=== PATIENT | male | born 1985 | race Caucasian/White ===

== ENCOUNTER 2020-07-10 11:16 | Emergency (ER) | payer BC, SELFPAY ==
[2020-07-10 11:34] VITALS: BP 140/81; PULSE 63; RESP 19; TEMP 36.6; O2SAT 100; BMI 24.9
--- NOTE | 2020-07-10 11:45 | HMH.EDUTC ---
[facility] [place] Disposition Clinical Impression: Encounter for laboratory testing for COVID-19 virus Disposition: Home, Self-Care Condition on Discharge: Good Instructions: Preventing the Spread of Coronavirus Discharge Instructions Additional Instructions: You was tested for today for COVID19 your test result should be back today you may call back to the [facility] later this evening to see if your test results are back and the result You was given a handout with instructions for Self Quarantine and Self isolation for while you wait on test results and what to do if they are positive Return if needed Straight to ER if any life threatening symptoms Follow up with Family Doctor if needed Referrals: Keanu Roman MD [Primary Care Provider] - As needed Forms: Work/School Release Time of Disposition: 11:50 Medical Decision Making - Dickson Inquiry Pt receiving controlled substance: No Dickson was queried for this patient: No Vital Signs: 07/10/20 11:34 Temperature 97.8 F Temperature Source Oral Pulse Rate [Right Brachial] 63 Respiratory Rate 19 Blood Pressure [Right Arm] 140/81 Blood Pressure Mean [Right Arm] 100 Blood Pressure Source [Right Arm] Automatic Cuff Blood Pressure Position [Right Arm] Sitting 02 Sat by Pulse Oximetry 100 Oxygen Delivery Method Room Air Orders (Tests/Meds): ORDERS Category Date Time Status Covid-19 Nasal PCR ([facility]) Routine Lab 07/10/20 11:21 Ordered [facility] [place] HPI - General Stated complaint: covid test Time Seen by Provider: 07/10/20 11:45 Mode of Arrival: Ambulatory Source of Information: Patient Limitations: No Limitations Description of Symptoms (Recalled from Triage Doc. by RN): PATIENT NEEDING COVID TEST. WAS EXPOSED TO COWORKER LAST WEEK WHO TESTED POSITIVE HEENT Symptoms (Recalled from RN notes): No Resp Symptoms (Recalled from RN notes): No Skin Symptoms (Recalled from RN notes): No MS Symptoms (Recalled from RN notes): No Functional Status (Recalled from RN notes): WNL - History of Present Illness Provider Complaint: Patient states that his employer sent him to get tested for COVID due to recently being exposed to another coworker that recently tested positive for COVID State that he isn't having any symptoms like cough, runny nose or fever but has been having some body aches but still wanted him to be tested due to close contact - Related Data Home Medications Medication Instructions Recorded Confirmed buprenorphine 8 mg-naloxone 2 mg 1.25 tab SUBLINGUAL DAILY #14 tab 02/17/19 07/10/20 sublingual tablet Allergies Allergy/AdvReac Type Severity Reaction Status Date / Time No Known Allergies Allergy Verified 01/09/20 11:19 - Worker's Comp Is this a Worker's Comp case?: No [facility] History - Hepatitis A Screen Drug use history?: No High risk sexual behaviors?: No History of sexually transmitted infection?: No Currently employed?: No Childcare worker?: No Do you have indoor plumbing?: Yes Do you have electricity?: Yes Attestation statement:: This patient has been screened for Hepatitis A risk factors. I have reviewed the patient's past medical history: Yes Other Surgeries: Yes: Appendectomy, Hernia Repair, Other Amputation: No Fractures: No Comment: Neck surgery - Social History Smoking Status: Never smoker Tobacco Type: smokeless tobacco # Packs/Day (cigarettes): 0 Alcohol Intake: never Substance Use Type: former substance user, heroin, opiates, methamphetamine Occupational Status: other Housing: house Household Members: family Family Hx:: No significant family history ROS Obtained: Yes All systems reviewed & no additional complaints, Yes Systems reviewed as appropriate & no additional complaints - Constitutional Constitutional: Reports system reviewed and no additional complaints, except as docu, Reports body ache, Denies chills, Denies fever(s), Denies headache(s) - ENT Ears, Nose, Mouth, and Throat: Denies otalgia, Denies sinus pain, Denie
[2020-07-10 11:55] VITALS: BP 140/81; PULSE 63; RESP 19; TEMP 36.6; O2SAT 100
[2020-07-11 13:28] LABS: Covid-19 Nasal PCR Sendout Lex NOT DETECTED
== END 2020-07-10 11:59 | disposition home or self-care (01) ==
PROVIDERS: Emergency Provider Nurse Practitioner; PCP Emergency Medicine
DX: Z20.828 Contact with and (suspected) exposure to other viral communicable diseases (principal)
CPT/HCPCS: 99201; U0004

== ENCOUNTER 2021-05-17 11:29 | Emergency (ER) | payer OTHER, SELFPAY ==
[2021-05-17 11:30] VITALS: BP 166/73; PULSE 51; RESP 20; TEMP 36.9; O2SAT 100; BMI 25.5
--- NOTE | 2021-05-17 12:22 | HMH.EDUTC ---
[facility] [place] [facility] [place] Clinical Impression: Left sided abdominal pain of unknown cause Disposition: Home, Self-Care Condition on Discharge: Good Instructions: DI for Abdominal Pain-Adult, DI for Acute Abdominal Pain Additional Instructions: Make sure if pain returns go straight to the Emergency Room for further treatment and evaluation Follow up with your Family Doctor if needed Return if needed Straight to ER if any life threatening symptoms Referrals: Keanu Roman MD [Primary Care Provider] - As needed Forms: Work/School Release Time of Disposition: 12:32 Medical Decision Making - Dickson Inquiry Pt receiving controlled substance: No Dickson was queried for this patient: No Vital Signs: 05/17/21 11:30 05/17/21 12:34 Temperature 98.4 F 98.4 F Temperature Source Oral Pulse Rate 51 L Pulse Rate [Right Brachial] 51 L Respiratory Rate 20 20 Blood Pressure 166/73 H Blood Pressure [Right Arm] 166/73 H Blood Pressure Mean [Right Arm] 104 Blood Pressure Source [Right Arm] Automatic Cuff Blood Pressure Position [Right Arm] Sitting 02 Sat by Pulse Oximetry 100 Oxygen Delivery Method Room Air - Lab Data Lab results reviewed: Yes: I reviewed the patient's lab results. Medical Decision Narrative: Discussed with patient and he states that he is not having any pain at this time and recommended transfer to the ED for further work up and evaluation Patient state that pain is better now and no longer having any pain Declined transfer State that he will go home and follow up with his PCP or return to the ER if pain returns States that he feels fine now but needs a note for work [facility] [place] HPI - General Stated complaint: left side stomach pain Time Seen by Provider: 05/17/21 12:22 Mode of Arrival: Ambulatory Source of Information: Patient Limitations: No Limitations Description of Symptoms (Recalled from Triage Doc. by RN): PATIENT C/O ABDOMINAL PAIN THAT STARTED THIS MORNING. STATES IT STARTS ON LEFT SIDE AND RADIATES TO FRONT, SHARP/BURNING PAIN. STATES HE HAS NAUSEA AND DIZZINESS WITH THE PAIN HEENT Symptoms (Recalled from RN notes): No Resp Symptoms (Recalled from RN notes): No Skin Symptoms (Recalled from RN notes): No MS Symptoms (Recalled from RN notes): No Functional Status (Recalled from RN notes): WNL - History of Present Illness Provider Complaint: Patient states that earlier this morning he was at work and drink a [employer] States that he had some sharp pain on the left side of his abdomen that radiated across his abdomen and when it happened it made him feel flush, have nausea and pain State that he had to leave work and when he got in his truck he belched and passed some gas and felt better States that now pain is gone and no longer feeling that way but had to leave work so he needed a note State that he also wanted to get his urine checked to see if he may have a UTI since his urine has been dark - Related Data Home Medications Medication Instructions Recorded Confirmed buprenorphine 8 mg-naloxone 2 mg 1.25 tab SUBLINGUAL DAILY #14 tab 02/17/19 01/31/21 sublingual tablet Allergies Allergy/AdvReac Type Severity Reaction Status Date / Time No Known Allergies Allergy Verified 01/31/21 11:51 - Worker's Comp Is this a Worker's Comp case?: No [facility] History - Hepatitis A Screen Drug use history?: No High risk sexual behaviors?: No History of sexually transmitted infection?: No Currently employed?: No Childcare worker?: No Do you have indoor plumbing?: Yes Do you have electricity?: Yes Attestation statement:: This patient has been screened for Hepatitis A risk factors. I have reviewed the patient's past medical history: Yes Other Surgeries: Yes: Appendectomy, Hernia Repair, Other Amputation: No Fractures: No Comment: Neck surgery - Social History Smoking Status: Never smoker Tobacco Type: smokeless tobacco # Packs/Day (cigarettes): 0 Alcohol Intake: never Substance Use Type
[2021-05-17 12:34] VITALS: BP 166/73; PULSE 51; RESP 20; TEMP 36.9; O2SAT 100
[2021-05-17 15:36] LABS: Apearance,Urine Clear (Clear); Bilirubin,Urine Negative (Negative); Blood, Urine Negative (Negative); Color,Urine Yellow (Yellow); Glucose,Urine (UA) Negative (Negative); Ketones,Urine Negative (Negative); Protein,Urine Negative (Negative); Specific Gravity, Urine 1.015 (1.005-1.030); UTC Leukocyte Esterase,Urine Negative (Negative); UTC Nitrate,Urine Negative (Negative); Urobilinogen,Urine 0.2 EU/dl (0.2)
== END 2021-05-17 12:41 | disposition home or self-care (01) ==
PROVIDERS: Emergency Provider Nurse Practitioner; PCP Emergency Medicine
DX: R10.12 Left upper quadrant pain (principal); R42 Dizziness and giddiness; F19.11 Other psychoactive substance abuse, in remission
CPT/HCPCS: 81003; 99202; G0463

== ENCOUNTER 2021-06-13 10:51 | Emergency (ER) | payer OTHER, SELFPAY ==
[2021-06-13 10:53] VITALS: BP 143/85; PULSE 85; RESP 20; TEMP 36.7; O2SAT 97; BMI 23.7
--- NOTE | 2021-06-13 11:06 | HMH.EDGENADL ---
ED Disposition Clinical Impression: Knee sprain Qualifiers: Encounter type: initial encounter Involved ligament of knee: unspecified ligament Laterality: left Qualified Code(s): S83.92XA - Sprain of unspecified site of left knee, initial encounter Disposition: Home, Self-Care Condition on Discharge: Good Additional Instructions: Knee immobilizer and crutches until follow-up by orthopedics. Call Dr. Weaver, orthopedics, today to make appointment for follow-up. Sitting job only until follow-up with orthopedics. Continue ibuprofen for pain and ice for swelling. Referrals: Keanu Roman MD [Primary Care Provider] - Best Weaver MD [Staff Physician] - Forms: Work/School Release - Critical Care Critical Care Time: No Attestation: On 06/13/21, the high probability of a clinically significant, sudden or life threatening deterioration of the following system(s) required my full and direct attention, intervention and personal management. The time I documented below is in addition to time spent performing reported procedures but includes the following listed in this critical care notation. Medical Decision Making - Dickson Inquiry Pt receiving controlled substance: No Vital Signs: 06/13/21 10:53 06/13/21 11:16 Temperature 98.1 F Temperature Source Oral Pulse Rate 71 Pulse Rate [Right] 85 Respiratory Rate 20 18 Blood Pressure 146/73 H Blood Pressure [Right Arm] 143/85 H Blood Pressure Mean 97 Blood Pressure Mean [Right Arm] 104 02 Sat by Pulse Oximetry 97 100 Oxygen Delivery Method Room Air Orders (Tests/Meds): ORDERS Category Date Time Status Knee XR left 3 views [XR knee LT 3V] Stat Exams 06/13/21 11:11 Taken - Radiology Data #1 Image(s): Knee Image Reviewed: Yes I reviewed the patient's radiology image Preliminary Findings: Normal/NAD General Adult HPI - General Stated complaint: fall 06/13 0830 lt knee pain Time Seen by Provider: 06/13/21 11:06 - History of Present Illness HPI narrative: States that he injured his left knee this morning at about 8:20 AM at work. States he accidentally stepped on a hose while standing on a downsloping floor. He slid down and in the process of falling hyperextended his left knee, felt a pop. He complains of pain deep down in the knee. Says he was unable to ambulate afterwards. Denies numbness or weakness. Denies other injuries. No prior knee problems. He used ice and took ibuprofen prior to arrival. Current pain is 3/10, initially was 5-6/10. - Related Data Home Medications Medication Instructions Recorded Confirmed buprenorphine 8 mg-naloxone 2 mg 1.25 tab SUBLINGUAL DAILY #14 tab 02/17/19 01/31/21 sublingual tablet Allergies Allergy/AdvReac Type Severity Reaction Status Date / Time No Known Allergies Allergy Verified 01/31/21 11:51 [facility] History - Hepatitis A Screen Attestation statement:: This patient has been screened for Hepatitis A risk factors. I have reviewed the patient's past medical history: Yes Other Surgeries: Yes: Appendectomy, Hernia Repair, Other Amputation: No Fractures: No Comment: Neck surgery - Social History Smoking Status: Never smoker Tobacco Type: smokeless tobacco # Packs/Day (cigarettes): 0 Alcohol Intake: never Substance Use Type: former substance user, heroin, opiates, methamphetamine Occupational Status: other Housing: house Household Members: family Family Hx:: No significant family history ROS Obtained: Yes Systems reviewed as appropriate & no additional complaints - Musculoskeletal Musculoskeletal: Reports as per HPI, Reports joint pain - Neurologic Neurologic: Denies numbness, Denies weakness Physical Exam - General General appearance: alert, in no apparent distress - Respiratory Respiratory exam: Absent: respiratory distress - Cardiovascular Cardiovascular exam: Present: regular rate - Expanded Lower Extremity Exam Left Knee exam
--- NOTE | 2021-06-13 11:11 | XR_ITS ---
PROCEDURE: XR KNEE LT 3V CLINICAL INDICATION: injury, hyperextension COMPARISON: No exams were available for comparison FINDINGS: No fracture or dislocation. Small bone island is present in the medial femoral condyle Minimal osteoarthritic change medial compartment. Suspect small suprapatellar effusion Other findings:None. IMPRESSION: No acute finding. Small suprapatellar effusion with minimal osteoarthritis Dictated by: Km Dunlap MD 06/13/2021 12:46 Km Dunlap MD in OV 06/13/2021 12:46
[2021-06-13 11:16] VITALS: BP 146/73; PULSE 71; RESP 18; O2SAT 100
[2021-06-13 11:50] VITALS: BP 132/71; PULSE 76; RESP 18; TEMP 36.7; O2SAT 98
--- NOTE | 2021-06-13 11:59 | PC.NURSE ---
Patient refused wheelchair assistance at discharge
--- NOTE | 2021-06-13 12:03 | PC.NURSE ---
patient provided copy of workmans comp form at discharge
== END 2021-06-13 11:59 | disposition home or self-care (01) ==
PROVIDERS: Emergency Provider Emergency Medicine; PCP Emergency Medicine
DX: S83.92XA Sprain of unspecified site of left knee, initial encounter (principal)
CPT/HCPCS: 73562; 99283

== ENCOUNTER → 2021-10-16 21:02 | Outpatient (CLI) | payer OTHER, SELFPAY | PROVIDERS: Visit Provider Nurse Practitioner Family | DX: Z20.822 Contact with and (suspected) exposure to COVID-19 (principal) | CPT/HCPCS: C9803; U0003; U0005 ==

== ENCOUNTER → 2021-11-04 12:10 | Outpatient (CLI) | payer OTHER, SELFPAY | PROVIDERS: Visit Provider Nurse Practitioner | DX: U07.1 COVID-19 (principal) | CPT/HCPCS: C9803; U0003; U0005 ==

== ENCOUNTER 2021-11-19 11:04 | Emergency (ER) | payer OTHER, SELFPAY ==
[2021-11-19 11:06] VITALS: BP 148/77; PULSE 80; RESP 16; TEMP 36.8; O2SAT 98; BMI 23.1
--- NOTE | 2021-11-19 11:25 | HMH.EDGENADL ---
ED Disposition Clinical Impression: Vertigo Disposition: Home, Self-Care Condition on Discharge: Fair Instructions: DI for Vertigo Additional Instructions: Antivert and Phenergan as prescribed. Follow-up with primary care provider this week. Return to the emergency department if worsening symptoms. Prescriptions: Promethazine HCl [Phenergan 25mg tab] 25 mg PO Q6HP PRN #10 tab PRN Reason: Nausea And Vomiting Transmission Status: Pending to [facility] Meclizine HCl [Antivert 25mg tablet] 25 mg PO TIDP PRN #15 tab PRN Reason: Vertigo Transmission Status: Pending to [facility] Referrals: Keanu Roman MD [Primary Care Provider] - - Critical Care Critical Care Time: No Attestation: On , the high probability of a clinically significant, sudden or life threatening deterioration of the following system(s) required my full and direct attention, intervention and personal management. The time I documented below is in addition to time spent performing reported procedures but includes the following listed in this critical care notation. Medical Decision Making - Dickson Inquiry Pt receiving controlled substance: No Vital Signs: 11/19/21 11:06 11/19/21 12:53 Temperature 98.2 F Temperature Source Oral Pulse Rate [Radial] 80 Respiratory Rate 16 Blood Pressure 128/77 Blood Pressure [Right Arm] 148/77 H Blood Pressure Mean [Right Arm] 100 Blood Pressure Position [Right Arm] Sitting 02 Sat by Pulse Oximetry 98 98 Oxygen Delivery Method Room Air - Lab Data Lab Results 11/19/21 11:28: POC Glucose 136 H 11/19/21 11:48: WBC 8.1, RBC 4.56 L, Hgb 13.2 L, Hct 41.1 L, MCV 90.0, MCH 28.9, MCHC 32.1, RDW 13.2, Plt Count 335, MPV 7.8, Neut % (Auto) 84.7 H, Lymph % (Auto) 10.9, [place] % (Auto) 3.5, Eos % (Auto) 0.4, Baso % (Auto) 0.5, Neut # (Auto) 6.9, Lymph # (Auto) 0.9, [place] # (Auto) 0.3, Eos # (Auto) 0.0, Baso # (Auto) 0.0 11/19/21 11:48: Sodium 141, Potassium 4.2, Chloride 102, Carbon Dioxide 31 H, Anion Gap 12.2, BUN 13, Creatinine 0.70, Estimated Creat Clear 178, Estimated GFR 128, Est GFR ( Amer) 154, Glucose 142 H, Calcium 9.9, Total Bilirubin 0.5, AST 36, ALT 27, Alkaline Phosphatase 97, Troponin I < 0.01, Total Protein 8.5 H, Albumin 4.8, Globulin 3.7 H, Albumin/Globulin Ratio 1.3 11/19/21 11:48: TSH 0.20 L, Free T4 Index 3.1 L, Thyroxine (T4) 10.7, T3 Uptake 29 Result diagrams: 11/19/21 11:48 11/19/21 11:48 Orders (Tests/Meds): ED MEDICATIONS Discontinued Medications Generic Name Dose Route Start Last Admin Trade Name Freq PRN Reason Stop Dose Admin Meclizine HCl 25 mg 11/19/21 11:38 11/19/21 11:43 Meclizine 25mg Tablet PO 11/19/21 11:39 25 mg ONCE ONE Administration Ondansetron HCl 4 mg 11/19/21 11:51 11/19/21 11:51 Ondansetron 4mg/2ml Vial IV 11/19/21 11:52 4 mg ONCE ONE Administration ORDERS Category Date Time Status Troponin I Q3H Lab 11/19/21 14:45 Ordered Troponin I Q3H Lab 11/19/21 17:45 Ordered - CT Data CT Scan: Head Time Received: 12:[address] Reviewed: Yes: I have viewed the radiologist's interpretation Findings Narrative: Procedure(s): CT head/brain wo con Accession Number(s): [id number] cc: Keanu Roman MD; Radhames Villeda MD; Florencio Osman MD~ FINAL REPORT CLINICAL HISTORY: dizziness, covid COMPARISON: May 18, 2016 FINDINGS: Axial images of the head were obtained without contrast. Coronal reformatted images were also obtained.This study was performed with techniques to keep radiation doses as low as reasonably achievable (ALARA). Individualized dose reduction techniques using automated exposure control or adjustment of mA and/or kV according to the patient's size were employed. There is no evidence of intracranial hemorrhage or mass. The ventricular size is within normal limits. There is no evidence of shift of the midline structures. No abnormal extra axia
[2021-11-19 11:35] LABS: POC Glucose,Bedside 136 (70-110)
--- NOTE | 2021-11-19 11:38 | CT_ITS ---
FINAL REPORT CLINICAL HISTORY: dizziness, covid COMPARISON: May 18, 2016 FINDINGS: Axial images of the head were obtained without contrast. Coronal reformatted images were also obtained.This study was performed with techniques to keep radiation doses as low as reasonably achievable (ALARA). Individualized dose reduction techniques using automated exposure control or adjustment of mA and/or kV according to the patient's size were employed. There is no evidence of intracranial hemorrhage or mass. The ventricular size is within normal limits. There is no evidence of shift of the midline structures. No abnormal extra axial fluid collection is identified. No skull abnormality is seen on the bone window images. IMPRESSION: No acute intracranial abnormality. Reviewed, Interpreted and Dictated by Radhames Villeda III, MD Transcribed by Talha Sandoval Authenticated by Radhames Villeda III, MD on 11/19/2021 12:34:42 PM [facility]
--- NOTE | 2021-11-19 11:39 | ECG_ITS ---
APPROVED REPORT Exam: Resting ECG HR:67 bpm ECG Measurements Heart Rate 67 AXES NV 188 P 71 QRSd 99 QRS 64 QT 375 T 40 QTc 391 Conclusion SINUS RHYTHM POSSIBLE LEFT ATRIAL ENLARGEMENT [-0.1mV P-WAVE IN V1/V2] POSSIBLE RIGHT VENTRICULAR CONDUCTION DELAY [RSR (QR) IN V1/V2] BORDERLINE ECG UNCONFIRMED REPORT Electronically signed by : Omari Islas MD 11/19/2021 17:44:44
[2021-11-19 12:08] LABS: Basophils % 0.5 % (0.1-2.0); Eosinophils % 0.4 % (0.1-12.0); Hematocrit 41.1 % (42.0-52.0); Hemoglobin 13.2 g/dL (14.1-18.0); Lymphocytes # 0.9 K/mm3 (0.7-4.5); Lymphocytes % 10.9 % (10-50); Mean Corpuscular HGB Conc 32.1 g/dL (31.8-35.4); Mean Corpuscular Hemoglobin 28.9 pg (27.0-31.2); Mean Platelet Volume 7.8 fl (7.4-10.4); Monocytes # 0.3 K/mm3 (0.1-1.0); Monocytes % 3.5 % (1.7-9.3); Neutrophils # 6.9 K/mm3 (1.8-7.8); Neutrophils % 84.7 % (37.0-80.0); Platelet Count 335 K/mm3 (142-424); Red Blood Count 4.56 M/mm3 (4.60-6.20); Red Cell Distribution Width 13.2 % (11.5-17.5); White Blood Count 8.1 K/mm3 (4.8-10.8)
[2021-11-19 12:14] LABS: Alanine Aminotransferase 27 U/L (12-78); Albumin Level 4.8 g/dl (3.5-5.0); Albumin/Globulin Ratio 1.3 (1.1-1.8); Alkaline Phosphatase 97 U/L (38-126); Anion Gap 12.2 mEq/L (5-15); Aspartate Amino Transferase 36 U/L (17-59); Bilirubin,Total 0.5 mg/dl (0.2-1.3); Blood Urea Nitrogen 13 mg/dl (9-20); Calcium 9.9 mg/dl (8.4-10.2); Carbon Dioxide 31 mmol/L (22.0-30.0); Chloride 102 mmol/L (98-107); Creatinine Clearance Estimated 178 mL/min (50-200); Estimated Glomerular Filt Rate 128 ml/min (>60); GFR (African American) 154 ML/MIN (>60); Globulin 3.7 g/dL (1.3-3.2); Glucose 142 mg/dl (74-100); Potassium 4.2 mmoL/L (3.5-5.1); Sodium 141 mmol/L (136-145); Total Protein,Serum 8.5 g/dl (6.3-8.2)
[2021-11-19 12:31] LABS: Troponin I < 0.01 ng/ml (0.00-0.034)
[2021-11-19 12:50] LABS: Triiodothryronine (T3) Uptake 29 % (23.5-40.5)
[2021-11-19 12:51] LABS: Free Thyroxine Index 3.1 ug/dL (5.93-13.13); T4 (Thyroxine) 10.7 ug/dl (5.53-11.0)
[2021-11-19 12:53] VITALS: BP 128/77; O2SAT 98
[2021-11-19 15:12] VITALS: BP 135/75; PULSE 78; RESP 16; TEMP 36.9; O2SAT 98
== END 2021-11-19 15:14 | disposition home or self-care (01) ==
PROVIDERS: Emergency Provider Emergency Medicine; PCP Emergency Medicine
DX: R42 Dizziness and giddiness (principal); Z86.16 Personal history of COVID-19
CPT/HCPCS: 70450; 80053; 82962; 84436; 84443; 84479; 84484; 85025; 93005; 99282; J2405

== ENCOUNTER 2025-01-20 16:24 | Observation (INO) | payer OTHER, SELFPAY ==
[2025-01-20] VITALS (12 sets, daily range): BP systolic 104–141; BP diastolic 50–79; PULSE 45–82; RESP 17; TEMP 36.7–37.1; O2SAT 97–100; BMI 26.2
--- NOTE | 2025-01-20 16:39 | CT_ITS ---
PROCEDURE INFORMATION: Exam: CT Abdomen And Pelvis With Contrast Exam date and time: 01/20/2025 4:57 PM Age: 39 years old Clinical indication: Other: Umbilical abscess, assess depth and extent TECHNIQUE: Imaging protocol: Computed tomography of the abdomen and pelvis with contrast. Radiation optimization: All CT scans at this facility use at least one of these dose optimization techniques: automated exposure control; mA and/or kV adjustment per patient size (includes targeted exams where dose is matched to clinical indication); or iterative reconstruction. Contrast material: ISOVUE; Contrast volume: 75 ml; Contrast route: IV; COMPARISON: No relevant prior studies available. FINDINGS: Liver: Unremarkable. Gallbladder and biliary ducts: Unremarkable. Pancreas: Unremarkable. Spleen: Unremarkable. Adrenal glands: Unremarkable. Kidneys and ureters: Unremarkable. Stomach and bowel: Unremarkable. Appendix: No evidence of appendicitis. Intraperitoneal space: No free fluid. No pneumoperitoneum. Vasculature: Unremarkable. Lymph nodes: Unremarkable. Urinary bladder: Urinary bladder is unremarkable. No evidence of cyst or inflammatory changes in the urachal ligament. Reproductive: Unremarkable. Bones/joints: Grade 1 retrolisthesis at L5-S1. No evidence of acute osseous abnormality. Soft tissues: Soft tissue thickening in the umbilicus compatible with the reported history of umbilical soft tissue infection. No focal fluid collection or subcutaneous emphysema. IMPRESSION: 1. Soft tissue thickening in the umbilicus compatible with the reported history of umbilical soft tissue infection. No evidence of drainable fluid collection or intra-abdominal extension. 2. Grade 1 retrolisthesis at L5-S1.
--- NOTE | 2025-01-20 16:52 | HMH.EDGENADL ---
Discharge Plan Disposition Patient Disposition: Admitted Prescriptions Prescriptions: No Action buprenorphine-naloxone 8-2 mg tablet, sublingual 1.25 tab SUBLINGUAL DAILY Qty: 14 Referrals Follow up/Referrals: Provider,Referral, MD [Primary Care Provider] - See instructions Clinical Impressions Clinical Impression: Abscess of umbilicus Instructions Patient Instructions: DI for Laceration Repair Print Language Print Language: [place] Discharge ED Provider: Ralph Richardson General Adult HPI General Chief complaint: Wound/Laceration Stated complaint: ? infected naval,has bloody drainage Time Seen by Provider: 01/20/25 16:28 History of Present Illness HPI narrative: Please note that above description of symptoms, in this electronic medical record under categorization of recalled from ER triage doctor by RN are reflective of an initial nursing assessment, however, is not reflective of my full history and physical exam that was personally taken and clarified. Consequentially, this preceding description of symptoms, which may include the patient's categorized chief complaint in the EMR, do not reflect my personal clinical impression, and the ultimate description of history of present illness and patient stated complaints should be deferred to this section of the note. Unless stated otherwise or congruent with this section of the note, additional signs, symptoms, or incongruence should be interpreted as inaccurate with my clinical impression. Related Data Home Medications ?Medication ?Instructions ?Recorded ?Confirmed buprenorphine 8 mg-naloxone 2 mg 1.25 tab sublingual DAILY 02/17/19 01/20/25 sublingual tablet ADDICTION #14 tabs Allergies Allergy/AdvReac Type Severity Reaction Status Date / Time No Known Allergies Allergy Verified 01/20/25 15:54 [facility] Disclaimer: The information contained in this section may have been updated after the patient was seen, as this information can be updated by other users. Social History Smoking Status: Never smoker alcohol intake: never substance use type: former substance user, heroin, opiates and methamphetamine current occupational status: other Travel in the last 8 weeks: None household members: family housing: house Have you lived/traveled outside US in past 30 days?: No Contact w/someone who lives/traveled outside US past 30 days?: No Exposure to someone with infectious disease in past 14 days?: No Do you have a fever (greater than 100.4 F or 38 C)?: No Have you tested positive for COVID-19: No Exposed to someone with COVID-19 in past 14 days?: No Do you have a sore throat?: No Do you have a cough?: No Do you have any weakness?: No Do you have any diarrhea?: No Are you experiencing any unusual bleeding?: No Do you have any muscle aches/pain?: No Do you have any abdominal pain?: No Are you experiencing loss of taste or smell?: No Other Medical History Have you received the Flu Vaccine for this season: No Have you received the Pneumonia Vaccine: No ROS Obtained: Yes All systems reviewed & no additional complaints except as documented Physical Exam General General appearance: alert Head Head exam: atraumatic and normocephalic Eye Eye exam: Present normal appearance, PERRL and EOMI Neck Neck exam: Present normal inspection, full ROM and trachea midline Respiratory Respiratory exam: Absent respiratory distress, wheezes, stridor, accessory muscle use or prolonged expiratory phase Cardiovascular Cardiovascular exam: Present other (Pulses equal symmetric in upper and lower extremities) Abdominal Exam Abdominal exam: Present soft and other (Patient has purulence coming from umbilicus that is foul-smelling, yellow to green. Red streaking inferior to the umbilicus consistent with cellulitis); Absent distention, tenderness, guarding, rebound or pulsatile mass Extremities Exam Extremities exam: Absent edema Neurological Exam Neurological exam: Present alert, oriented X3 and CN II-XII intact; Absent motor sensory deficit Skin Skin exam: Present warm and dry; Absent diaphoresis or erythema Medical Decision Making Medical Records Medical records reviewed: Yes I reviewed the patient's medical records. Screening: Per USPSTF and CDC recommendations, given the prevalence of disease in our region, it is our hospital?s policy to screen for HIV and viral Hepatitis for all patients aged 18 and over and those with ongoing risk factors. Dicks[place] Inquiry Pt receiving controlled substance: No Dickson was queried for this patient: No Vital Signs: 01/20/25 16:47 01/20/25 17:15 01/20/25 17:30 Temperature 98.2 F Temperature Source Oral Pulse Rate 50 L 48 L Pulse Rate [Left Radial] 58 L Respiratory Rate 17 Blood Pressure 115/75 116/68 Blood Pressure [Right Arm] 141/79 H Blood Pressure Mean Blood Pressure Mean [Right Arm] 99 Blood Pressure Source [Right Arm] Automatic Cuff Blood Pressure Position [Right Arm] Sitting 02 Sat by Pulse Oximetry 100 100 98 Oxygen Delivery Method Room Air Room Air Room Air 01/20/25 17:45 01/20/25 18:00 01/20/25 18:15 Temperature Temperature Source Pulse Rate 51 L 54 L 50 L Pulse Rate [Left Radial] Respiratory Rate Blood Pressure 127/69 107/72 L 125/76 Blood Pressure [Right Arm] Blood Pressure Mean 78 78 89 Blood Pressure Mean [Right Arm] Blood Pressure Source [Right Arm] Blood Pressure Position [Right Arm] 02 Sat by Pulse Oximetry 97 98 99 Oxygen Delivery Method 01/20/25 18:31 01/20/25 18:45 Temperature Temperature Source Pulse Rate 49 L 47 L Pulse Rate [Left Radial] Respiratory Rate Blood Pressure 113/59 L 110/60 Blood Pressure [Right Arm] Blood Pressure Mean 77 Blood Pressure Mean [Right Arm] Blood Pressure Source [Right Arm] Blood Pressure Position [Right Arm] 02 Sat by Pulse Oximetry 99 98 Oxygen Delivery Method Room Air Lab Data Lab Results 01/20/25 16:47: WBC 4.9, RBC 4.63, Hgb 13.7 L, Hct 40.4 L, MCV 87.3, MCH 29.6, MCHC 33.9, RDW 12.6, Plt Count 279, MPV 9.2, Neut % (Auto) 57.8, Lymph % (Auto) 27.2, [place] % (Auto) 8.3, Eos % (Auto) 5.7, Baso % (Auto) 0.8, Neut # (Auto) 2.8, Lymph # (Auto) 1.3, [place] # (Auto) 0.4, Eos # (Auto) 0.3, Baso # (Auto) 0.0, Sodium 140, Potassium 4.1, Chloride 102, Carbon Dioxide 30, Anion Gap 12.1, BUN 11, Creatinine 0.70, Estimated Creat Clear 195, Estimated GFR 126, Est GFR ( Amer) 152, Glucose 96, Calcium 8.9, Total Bilirubin 0.4, AST 41, ALT 24, Alkaline Phosphatase 84, Total Protein 8.2, Albumin 4.8, Globulin 3.4 H, Albumin/Globulin Ratio 1.4, HCV Ab RIZWANA w/Rflx PCR Qn Negative, HIV Ag/Ab Combo Qual Negative 01/20/25 16:47 01/20/25 16:47 Orders (Tests/Meds): ED MEDICATIONS Generic Name Dose Route Start Last Admin Trade Name Freq PRN Reason Stop Dose Admin Vancomycin/PEG/NADA/Lysine/Water 1.5 gm in 300 mls @ 150 mls/hr 01/20/25 19:15 01/20/25 19:19 Vancomycin 1.5gm/300ml (Peg) Premix IV 01/20/25 21:14 150 mls/hr ONCE ONE Administration Miscellaneous 1 each 01/20/25 19:00 01/20/25 19:06 Vancomycin Consult Request NOTAPPLIC 02/19/25 18:59 Not Given CONSULT [facility] Discontinued Medications Generic Name Dose Route Start Last Admin Trade Name Freq PRN Reason Stop Dose Admin Doxycycline Hyclate 100 mg 01/20/25 17:53 01/20/25 18:45 Doxycycline Hycl 100 Mg Tablet PO 01/20/25 17:54 100 mg ONCE ONE Administration Piperacillin Sod/Tazobactam 100 mls @ 200 mls/hr 01/20/25 18:49 01/20/25 19:19 Sod 4.5 gm/ Sodium Chloride IV 01/20/25 19:18 200 mls/hr ONCE ONE Administration Iopamidol 75 ml 01/20/25 17:01 01/20/25 17:02 Iopamidol-370 (76%);100ml Bottle IV 01/20/25 17:02 75 ml ONCE ONE Administration Sodium Chloride 10 ml 01/20/25 17:01 01/20/25 17:02 Sodium Chloride 0.9% 10ml Syr (Rad Only) IV 01/20/25 17:02 10 ml ONCE ONE Administration ORDERS Category Date Time Status CT abdomen pelvis w con Stat Cat Scan 01/20/25 16:39 Completed POCUS Point of Care (ER Only) Stat Exams 01/20/25 17:53 Completed CBC w/Auto Diff [Complete Blood Count Auto Diff] Stat Lab 01/20/25 16:47 Completed CMP [Comprehensive Metabolic Panel] Stat Lab 01/20/25 16:47 Completed HIV Combo Stat Lab 01/20/25 16:47 Completed Hepatitis C Ab Qual. W/ RFX Stat Lab 01/20/25 16:47 Completed Medical Decision Narrative: 39-year-old male history of remote IV drug abuse currently on Suboxone maintenance therapy presenting with umbilicus drainage. He states that this has been going on for about 2 months. Went to the urgent care 2 months prior to this, was told that he had a fungal infection in his navel and was given a fungal cream. Has been putting it on his navel since that time, states it has not been helping and over the past couple weeks it has been draining thick, malodorous drainage. Started yesterday or the day before, patient started noticing redness streaking from the umbilicus down toward his belt line. Went to the urgent care just prior to this, but before being evaluated, came to the emergency department. No fevers or chills, nausea or vomiting, and no significant pain. States that he does have some mild pain when he applies direct pressure to the superior aspect of the umbilicus, but otherwise does not really bother him other than the drainage. History was obtained via conversation with patient. On arrival, patient hemodynamically stable, alert, oriented x4, appropriate, GCS 15, moving all extremities spontaneously, pupils equal and reactive to light. Full physical exam performed and significant for Patient has purulence coming from umbilicus that is foul-smelling, yellow to green. Red streaking inferior to the umbilicus consistent with cellulitis. No tenderness on my exam. Hemodynamically stable, afebrile and normotensive. Nontachycardic. Differential includes cellulitis, abscess, deep space infection, among others. Patient placed on continuous cardiac monitoring and continuous pulse ox with initial blood pressure 141/79, heart rate 58, saturation 99% on room air. Patient was given doxycycline p.o. for symptomatic management and correction of underlying abnormalities. Workup independently interpreted and significant for nonactionable hematologic labs. On independent interpretation of imaging, patient has umbilical abscess that appears to be nearly communicating with the peritoneum. Peritoneal defect immediately under. See radiology read for full review of final results. Bedside [id number] ultrasound was performed. There is a large abscess extending from umbilicus down to peritoneal wall. General surgery was contacted and case was discussed, mention that he would like to admit the patient for operative evaluation and examination. Hospital medicine was contacted and interactive discussion was had, to be admitted. Surgery requested vancomycin and Zosyn, this was ordered. Lorry Weigher disclaimer Much of this encounter note is an electronic hot walker spoken language to printed text. Electronic hot walker of the spoken language may permit errors. Although I have reviewed the note, some errors may still exist. Procedures Limited Ultrasound Indication:: Limited soft tissue ultrasound Indication: Periumbilical swelling, redness, drainage Identified structures: Location: Abdominal wall tissues Findings: Cellulitis and abscess Impression: Cellulitis and abscess umbilical wall just deep to the umbilicus Images were saved to permanent archive The study was technically adequate Soft Tissue CPT Codes: CPT Neck: 73793-71 CPT Upper extremity: 62156-04 CPT Axilla: 12837-28 CPT Chest wall: 43613-90 CPT Breast: 42251-12-HW/LT (complete), 23499-79-LN/LT (limited), CPT Upper Back: 09647-82 CPT Lower Back: 76109-01 CPT Abdominal Wall: 73967-16 CPT Pelvic Wall: 60249-66 CPT Lower Extremity: 21588-33 CPT Other Soft Tissue: 46161-75 This study was performed by me, and I personally interpreted all images/videos. Based on my clinical judgement, these images were adequate and did not necessitate further imaging. Critical Care Critical Care Time Critical Care Time: No
[2025-01-20 16:57] LABS: Basophils % 0.8 % (0.1-2.0); Eosinophils # 0.3 K/mm3 (0.0-0.4); Eosinophils % 5.7 % (0.1-12.0); Hematocrit 40.4 % (42.0-52.0); Hemoglobin 13.7 g/dL (14.1-18.0); Lymphocytes # 1.3 K/mm3 (0.7-4.5); Lymphocytes % 27.2 % (10-50); Mean Corpuscular HGB Conc 33.9 g/dL (31.8-35.4); Mean Corpuscular Hemoglobin 29.6 pg (27.0-31.2); Mean Corpuscular Volume 87.3 fl (80-94); Mean Platelet Volume 9.2 fl (7.4-10.4); Monocytes # 0.4 K/mm3 (0.1-1.0); Monocytes % 8.3 % (1.7-9.3); Neutrophils # 2.8 K/mm3 (1.8-7.8); Neutrophils % 57.8 % (37.0-80.0); Nucleated Red Blood Cells # 0 10^3/uL; Nucleated Red Blood Cells % 0 %; Platelet Count 279 K/mm3 (142-424); Red Blood Count 4.63 M/mm3 (4.60-6.20); Red Cell Distribution Width 12.6 % (11.5-17.5); Red Cell Distribution Width-SD 40.1 fL; White Blood Count 4.9 K/mm3 (4.8-10.8)
[2025-01-20] MEDS: IOPAMIDOL-370 (76%);100ML BOTTLE 75 ML IV (17:02)
[2025-01-20] MEDS: SODIUM CHLORIDE 0.9% 10ML SYR (RAD ONLY) 10 ML IV (17:02)
[2025-01-20 17:07] LABS: Albumin Level 4.8 g/dl (3.5-5.0); Chloride 102 mmol/L (98-107); Sodium 140 mmol/L (136-145)
[2025-01-20 17:08] LABS: Potassium 4.1 mmoL/L (3.5-5.1)
[2025-01-20 17:10] LABS: Alanine Aminotransferase 24 U/L (12-78); Albumin/Globulin Ratio 1.4 (1.1-1.8); Anion Gap 12.1 mEq/L (5-15); Aspartate Amino Transferase 41 U/L (17-59); Blood Urea Nitrogen 11 mg/dl (9-20); Carbon Dioxide 30 mmol/L (22.0-30.0); Creatinine Clearance Estimated 195 mL/min (50-200); Estimated Glomerular Filt Rate 126 ml/min (>60); GFR (African American) 152 ML/MIN (>60); Globulin 3.4 g/dL (1.3-3.2); Total Protein,Serum 8.2 g/dl (6.3-8.2)
[2025-01-20 17:11] LABS: Alkaline Phosphatase 84 U/L (38-126); Bilirubin,Total 0.4 mg/dl (0.2-1.3); Calcium 8.9 mg/dl (8.4-10.2); Glucose 96 mg/dl (74-100)
[2025-01-20 18:39] LABS: HIV Combo NEGATIVE (Negative)
[2025-01-20] MEDS: DOXYCYCLINE HYCL 100 MG TABLET PO (18:45)
[2025-01-20 18:46] LABS: Hepatitis C Ab Qual. W/ RFX NEGATIVE (Negative)
[2025-01-20] MEDS: VANCOMYCIN/WATER FOR INJ (PEG) 1.5 GM/300 ML PIGGYBACK IV (19:19)
[2025-01-20] MEDS: PIPERACILLIN/TAZO 4.5 GM in 0.9 % SODIUM CHLORIDE 100 ML IV (19:19)
--- NOTE | 2025-01-20 19:56 | P.HP_ITS ---
<Statement entered by Shemar Garcia MD - 01/21/25 14:07> I personally examined the patient and agree with the plan of care as outlined by the [facility] SPECIALIST. History of Present Illness *Admission Date: 01/20/25 *Reason for visit:: Periumbilical abscess *History of present illness: A 39-year-old male with a history of remote IV drug abuse, currently on Suboxone maintenance therapy for 8 years, presents with a chief complaint of umbilical drainage for approximately 2 months. The patient reports that the issue began about 2 months ago when he sought care at an urgent care facility. He was diagnosed with a presumed fungal infection of the navel and prescribed an antif ungal cream, which he has been applying consistently since that time. He states the cream has not improved his symptoms, and over the past couple of weeks, the drainage has worsened, becoming thick, yellow-green, and malodorous. Starting 1?2 days prior to presentation, he noticed redness streaking from the umbilicus downward toward his belt line. This prompted a second visit to urgent care earlier today, but he left before evaluation and presented to the emergency department. The patient denies fevers, chills, nausea, vomiting, or significant pain. He reports mild discomfort only when applying direct pressure to the superior aspect of the umbilicus, with no other associated symptoms. He denies trauma to the area or recent surgeries. The history was obtained directly from the patient, who is deemed reliable. On examination, the patient is hemodynamically stable, alert, oriented x4, with a [place] Coma Scale of 15. Vital signs include blood pressure 141/79 mmHg, heart rate 58 bpm, oxygen saturation 99% on room air, and he is afebrile. Physical exam reveals purulent, foul-smelling, yellow-green drainage from the umbilicus with red streaking inferiorly toward the belt line. No tenderness is elicited on exam, though the patient reports mild tenderness with self-palpation superiorly. The remainder of the exam is unremarkable. Laboratory results are notable for a white blood cell count of 4.9 (within normal limits), hemoglobin of 13.7 g/dL (mildly low), and hematocrit of 40.4% (mildly low). Comprehensive metabolic panel is unremarkable, with creatinine of 0.70 mg/dL and estimated GFR of 126 mL/min/1.73m?. Liver function tests show a slightly elevated AST of 41 U/L, with normal ALT, bilirubin, and alkaline phosphatase. Hepatitis C antibody and HIV antigen/antibody tests are negative. Bedside [id number] ultrasound reveals a large umbilical abscess extending toward the peritoneal wall, nearly communicating with the peritoneum, with a peritoneal defect noted. Imaging, independently interpreted, confirms an umbilical abscess with concern for peritoneal involvement, pending final radiology read. Treatments implemented prior to admission include antifungal cream applied to the umbilicus for 2 months, as prescribed by urgent care, with no improvement noted. In the emergency department, the patient has received oral doxycycline, and intravenous vancomycin and Zosyn have been ordered and initiated for broad- spectrum antibiotic coverage by surgery with consultation in the a[facility] Disclaimer: The information contained in this section may have been updated after the patient was seen, as this information can be updated by other users. Surgical History H/O hernia repair Hx of appendectomy Social History Smoking Status: Never smoker alcohol intake: never substance use type: former substance user, heroin, opiates and methamphetamine current occupational status: employed Travel in the last 8 weeks: None household members: family housing: house Have you lived/traveled outside US in past 30 days?: No Contact w/someone who lives/traveled outside US past 30 days?: No Exposure to someone with infectious disease in past 14 days?: No Do you have a fever (greater than 100.4 F or 38 C)?: No Have you tested positive for COVID-19: No Exposed to someone with COVID-19 in past 14 days?: No Do you have a sore throat?: No Do you have a cough?: No Do you have any weakness?: No Are you experiencing any nausea/vomitting?: No Do you have any diarrhea?: No Are you experiencing any unusual bleeding?: No Do you have any muscle aches/pain?: No Do you have any abdominal pain?: No Are you experiencing loss of taste or smell?: No Other Medical History Have you received the Flu Vaccine for this season: No Have you received the Pneumonia Vaccine: No Review of Systems Review of Systems Review of systems (narrative): 13 point review of system negative except as listed in HPI Meds Home Medications and Allergies Home Medications ?Medication ?Instructions ?Recorded ?Confirmed ?Type buprenorphine 8 mg-naloxone 2 mg 1.5 tab sublingual DAILY ADDICTION 02/17/19 01/20/25 History sublingual tablet #14 tabs New Prescriptions to Start Prescriptions: Allergies Allergy/AdvReac Type Severity Reaction Status Date / Time No Known Allergies Allergy Verified 01/20/25 15:54 Exam Data for Last 24 hours Vital signs and Labs for Last 24 Hours: Temp Pulse Resp BP Pulse Ox O2 Del Method 98.2 F 47 L 17 110/60 98 Room Air 01/20/25 16:47 01/20/25 18:45 01/20/25 16:47 01/20/25 18:45 01/20/25 18:45 01/20/25 18:45 Laboratory Results - last 24 hr 01/20/25 16:47: WBC 4.9, RBC 4.63, Hgb 13.7 L, Hct 40.4 L, MCV 87.3, MCH 29.6, MCHC 33.9, RDW 12.6, Plt Count 279, MPV 9.2, Neut % (Auto) 57.8, Lymph % (Auto) 27.2, [place] % (Auto) 8.3, Eos % (Auto) 5.7, Baso % (Auto) 0.8, Neut # (Auto) 2.8, Lymph # (Auto) 1.3, [place] # (Auto) 0.4, Eos # (Auto) 0.3, Baso # (Auto) 0.0, Sodium 140, Potassium 4.1, Chloride 102, Carbon Dioxide 30, Anion Gap 12.1, BUN 11, Creatinine 0.70, Estimated Creat Clear 195, Estimated GFR 126, Est GFR ( Amer) 152, Glucose 96, Calcium 8.9, Total Bilirubin 0.4, AST 41, ALT 24, Alkaline Phosphatase 84, Total Protein 8.2, Albumin 4.8, Globulin 3.4 H, Albumin/Globulin Ratio 1.4, HCV Ab RIZWANA w/Rflx PCR Qn Negative, HIV Ag/Ab Combo Qual Negative I & O for Last 24 hours: Intake & Output 01/17/25 01/18/25 01/19/25 01/20/25 23:59 23:59 23:59 23:59 Weight 97.522 kg Constitutional Constitutional: no acute distress *Routine HEENT Exam Head: Present normocephalic Eye: Present EOMI and PERRL ENT: Present mucous membranes moist *Routine Neck Exam Neck: Present supple; Absent lymphadenopathy *Routine Respiratory Exam Respiratory: Present CTA bilaterally *Routine Cardiovascular Exam Cardiovascular: Present RRR *Routine Abdominal Exam Abdominal: Present soft, normoactive bowel sounds, tenderness and wound Comments: Purulent drainage periumbilical region *Routine Rectal Exam Rectal:: deferred *Routine Genitalia Exam Genitalia:: deferred *Routine Extremities Exam Extremities: Absent cyanosis, clubbing or edema *Routine Skin Exam Skin: Present warm; Absent rash *Routine Neurological Exam Neurological: Present alert and oriented X3 Assessment and Plan *Assessment and plan (1) Abscess of umbilicus: Status: Acute Category: Medical Code(s): L02.216 - Cutaneous abscess of umbilicus Plan Umbilical Abscess with Near-Peritoneal Communication: A large umbilical abscess identified on ultrasound and imaging, extending toward the peritoneal wall with a peritoneal defect, presenting with purulent, malodorous drainage for 2 months. * Continue intravenous vancomycin and piperacillin-tazobactam (Zosyn) for broad-spectrum coverage of polymicrobial infection, including methicillin- resistant Staphylococcus aureus and anaerobes. * Admit for general surgery evaluation and likely operative incision and drainage or debridement, per surgical consultation. N.p.o. after midnight * Obtain wound culture during surgical intervention to guide antibiotic t herapy. * Await final radiology read to confirm extent of peritoneal involvement. * Monitor for decreased drainage and repeat imaging only if recommended by surgery. Cellulitis (Inferior to Umbilicus): Erythema and streaking extending from the umbilicus toward the belt line, consistent with cellulitis, noted for 1?2 days. * Continue vancomycin and piperacillin-tazobactam (Zosyn), providing coverage for cellulitis. * Assess erythema and streaking every 8?12 hours * Elevate abdomen when feasible to minimize swelling. Mild Anemia (Hemoglobin 13.7 g/dL, Hematocrit 40.4%): Mildly low hemoglobin and hematocrit, likely chronic, without acute symptoms or bleeding. * Observe without acute intervention, given mild severity. * Repeat complete blood count in 24 Mildly Elevated AST (41 U/L): Isolated mild elevation of aspartate aminotransferase, with normal alanine aminotransferase, bilirubin, and alkaline phosphatase, possibly related to Suboxone or subclinical liver irritation. * Monitor liver function tests during admission to ensure no progression with antibiotic therapy. * Avoid hepatotoxic medications and confirm stable Suboxone dosing. * Repeat liver function tests in 48 hours if clinically indicated. Opioid Use Disorder on Suboxone Maintenance Therapy: Stable on Suboxone for 8 years, with no signs of relapse or withdrawal on presentation. * Continue Suboxone at current dose to prevent withdrawal, coordinating with hospital pharmacy for administration. * Monitor for withdrawal symptoms during admission. * Schedule outpatient follow-up with addiction medicine or primary care for ongoing Suboxone management. Disposition: * Admit to hospital medicine service for coordination with general surgery. * Maintain continuous cardiac monitoring and pulse oximetry due to risk of deeper infection.
--- NOTE | 2025-01-20 20:00 | PC.NURSE ---
REPORT CALLED TO JP HERRON
--- NOTE | 2025-01-20 20:16 | PC.NURSE ---
Patient arrived to floor via wheelchair from ED at 20:10.
[2025-01-20] MEDS: LACTATED RINGERS 1000ML 1,000 ML 50 ML IV (21:10)
[2025-01-21] VITALS (12 sets, daily range): BP systolic 113–150; BP diastolic 64–99; PULSE 51–94; RESP 16–18; TEMP 36.3–36.6; O2SAT 96–100; BMI 26.6
[2025-01-21 06:29] LABS: Chloride 106 mmol/L (98-107); Potassium 4.3 mmoL/L (3.5-5.1); Sodium 138 mmol/L (136-145)
[2025-01-21 06:32] LABS: Anion Gap 8.3 mEq/L (5-15); Blood Urea Nitrogen 10 mg/dl (9-20); Carbon Dioxide 28 mmol/L (22.0-30.0); Creatinine Clearance Estimated 232 mL/min (50-200); Estimated Glomerular Filt Rate 150 ml/min (>60); GFR (African American) 181 ML/MIN (>60); Phosphorous 3.2 mg/dl (2.5-4.5)
[2025-01-21 06:33] LABS: Calcium 8.6 mg/dl (8.4-10.2); Glucose 92 mg/dl (74-100)
[2025-01-21 07:03] LABS: Basophils % 0.8 % (0.1-2.0); Eosinophils # 0.3 K/mm3 (0.0-0.4); Eosinophils % 6.4 % (0.1-12.0); Hemoglobin 12.6 g/dL (14.1-18.0); Lymphocytes # 1.7 K/mm3 (0.7-4.5); Lymphocytes % 31.9 % (10-50); Mean Corpuscular HGB Conc 33.2 g/dL (31.8-35.4); Mean Corpuscular Hemoglobin 29.2 pg (27.0-31.2); Mean Corpuscular Volume 88.2 fl (80-94); Mean Platelet Volume 9.4 fl (7.4-10.4); Monocytes # 0.4 K/mm3 (0.1-1.0); Monocytes % 8.1 % (1.7-9.3); Neutrophils # 2.7 K/mm3 (1.8-7.8); Neutrophils % 52.6 % (37.0-80.0); Nucleated Red Blood Cells # 0 10^3/uL; Nucleated Red Blood Cells % 0 %; Platelet Count 252 K/mm3 (142-424); Red Blood Count 4.31 M/mm3 (4.60-6.20); Red Cell Distribution Width 12.6 % (11.5-17.5); Red Cell Distribution Width-SD 41.1 fL; White Blood Count 5.2 K/mm3 (4.8-10.8)
--- NOTE | 2025-01-21 07:53 | P.CONS_ITS ---
History of Present Illness *Admission Date: 01/20/25 *Reason for visit:: Abscess *History of present illness: Patient is a 39-year-old male from [place] with remote history of IV drug abuse on Suboxone maintenance therapy. He presented to the emergency department on the evening of 01/20/2025 with a 2-month history of umbilical infection. He had been seen at outside urgent care facility and treated with an antifungal topically. Over the past 2 weeks the drainage had worsened and becoming thick, yellowish to greenish, and malodorous over the past 1 to 2 days with redness and streaking from his umbilical area down to his belt line. This prompted visit to the urgent treatment center on 01/20/2025 but prior to evaluation patient had left and presented to the emergency department at [facility]. Evaluation in the emergency department revealed unremarkable laboratory findings. [id number] ultrasound by the ER physician revealed what appeared to be relatively large umbilical abscess extending toward the peritoneal wall. Surgery was contacted for recommendations. Given the extent it was felt that the may need operative intervention. Given the fact that this is a relatively longstanding chronic problem with patient being stable with normal laboratory findings and no signs of sepsis plan was made for admission for intravenous antibiotics and potential surgical intervention. He had previously undergone laparoscopic appendectomy greater than [address] [facility] Disclaimer: The information contained in this section may have been updated after the patient was seen, as this information can be updated by other users. Surgical History H/O hernia repair Hx of appendectomy Social History Smoking Status: Never smoker alcohol intake: never substance use type: former substance user, heroin, opiates and methamphetamine current occupational status: employed Travel in the last 8 weeks: None household members: family housing: house Have you lived/traveled outside US in past 30 days?: No Contact w/someone who lives/traveled outside US past 30 days?: No Exposure to someone with infectious disease in past 14 days?: No Do you have a fever (greater than 100.4 F or 38 C)?: No Have you tested positive for COVID-19: No Exposed to someone with COVID-19 in past 14 days?: No Do you have a sore throat?: No Do you have a cough?: No Do you have any weakness?: No Are you experiencing any nausea/vomitting?: No Do you have any diarrhea?: No Are you experiencing any unusual bleeding?: No Do you have any muscle aches/pain?: No Do you have any abdominal pain?: No Are you experiencing loss of taste or smell?: No Review of Systems Review of Systems Review of systems:: pertinent systems reviewed and negative unless documented below Meds Home Medications and Allergies Home Medications ?Medication ?Instructions ?Recorded ?Confirmed ?Type buprenorphine 8 mg-naloxone 2 mg 1.5 tab sublingual DAILY ADDICTION 02/17/19 01/20/25 History sublingual tablet #14 tabs New Prescriptions to Start Prescriptions: Allergies Allergy/AdvReac Type Severity Reaction Status Date / Time No Known Allergies Allergy Verified 01/20/25 15:54 Exam (Inpt) Vital signs and Labs for Last 24 Hours: Temp Pulse Resp BP Pulse Ox O2 Del Method 97.4 F L 51 L 18 141/68 H 96 Room Air 01/21/25 04:00 01/21/25 04:00 01/21/25 04:00 01/21/25 04:00 01/21/25 04:00 01/21/25 06:54 Laboratory Results - last 24 hr 01/20/25 16:47: WBC 4.9, RBC 4.63, Hgb 13.7 L, Hct 40.4 L, MCV 87.3, MCH 29.6, MCHC 33.9, RDW 12.6, Plt Count 279, MPV 9.2, Neut % (Auto) 57.8, Lymph % (Auto) 27.2, [place] % (Auto) 8.3, Eos % (Auto) 5.7, Baso % (Auto) 0.8, Neut # (Auto) 2.8, Lymph # (Auto) 1.3, [place] # (Auto) 0.4, Eos # (Auto) 0.3, Baso # (Auto) 0.0, Sodium 140, Potassium 4.1, Chloride 102, Carbon Dioxide 30, Anion Gap 12.1, BUN 11, Creatinine 0.70, Estimated Creat Clear 195, Estimated GFR 126, Est GFR ( Amer) 152, Glucose 96, Calcium 8.9, Total Bilirubin 0.4, AST 41, ALT 24, Alkaline Phosphatase 84, Total Protein 8.2, Albumin 4.8, Globulin 3.4 H, Albumin/Globulin Ratio 1.4, HCV Ab RIZWANA w/Rflx PCR Qn Negative, HIV Ag/Ab Combo Qual Negative 01/21/25 06:08: WBC 5.2, RBC 4.31 L, Hgb 12.6 L, Hct 38.0 L, MCV 88.2, MCH 29.2, MCHC 33.2, RDW 12.6, Plt Count 252, MPV 9.4, Neut % (Auto) 52.6, Lymph % (Auto) 31.9, [place] % (Auto) 8.1, Eos % (Auto) 6.4, Baso % (Auto) 0.8, Neut # (Auto) 2.7, Lymph # (Auto) 1.7, [place] # (Auto) 0.4, Eos # (Auto) 0.3, Baso # (Auto) 0.0, Sodium 138, Potassium 4.3, Chloride 106, Carbon Dioxide 28, Anion Gap 8.3, BUN 10, Creatinine 0.60 L, Estimated Creat Clear 232, Estimated GFR 150, Est GFR ( Amer) 181, Glucose 92, Calcium 8.6, Phosphorus 3.2 I & O for Labs for Last 24 Hours: Intake & Output 01/18/25 01/19/25 01/20/25 01/21/25 11:59 11:59 11:59 11:59 Intake Total 550 / 550 Output Total 0 / 0 Balance 550 / 550 Weight 219 lb 3.2 oz Constitutional: no acute distress Head: Present normocephalic Respiratory: Present CTA bilaterally Cardiac: Present Reg Rate and Rhythm GI: Present soft Comments:: There is regional faint erythema umbilicus inferiorly. Area is markedly tender. Deep inspection of the umbilicus reveals some inflamed tissue, possibly fatty tissue deep within the umbilicus. There is some purulent drainage surrounding the umbilicus. Results Labs 01/21/25 06:08 01/21/25 06:08 Labs: Laboratory Results - last 24 hr 01/20/25 16:47: WBC 4.9, RBC 4.63, Hgb 13.7 L, Hct 40.4 L, MCV 87.3, MCH 29.6, MCHC 33.9, RDW 12.6, Plt Count 279, MPV 9.2, Neut % (Auto) 57.8, Lymph % (Auto) 27.2, [place] % (Auto) 8.3, Eos % (Auto) 5.7, Baso % (Auto) 0.8, Neut # (Auto) 2.8, Lymph # (Auto) 1.3, [place] # (Auto) 0.4, Eos # (Auto) 0.3, Baso # (Auto) 0.0, Sodium 140, Potassium 4.1, Chloride 102, Carbon Dioxide 30, Anion Gap 12.1, BUN 11, Creatinine 0.70, Estimated Creat Clear 195, Estimated GFR 126, Est GFR ( Amer) 152, Glucose 96, Calcium 8.9, Total Bilirubin 0.4, AST 41, ALT 24, Alkaline Phosphatase 84, Total Protein 8.2, Albumin 4.8, Globulin 3.4 H, Albumin/Globulin Ratio 1.4, HCV Ab RIZWANA w/Rflx PCR Qn Negative, HIV Ag/Ab Combo Qual Negative 01/21/25 06:08: WBC 5.2, RBC 4.31 L, Hgb 12.6 L, Hct 38.0 L, MCV 88.2, MCH 29.2, MCHC 33.2, RDW 12.6, Plt Count 252, MPV 9.4, Neut % (Auto) 52.6, Lymph % (Auto) 31.9, [place] % (Auto) 8.1, Eos % (Auto) 6.4, Baso % (Auto) 0.8, Neut # (Auto) 2.7, Lymph # (Auto) 1.7, [place] # (Auto) 0.4, Eos # (Auto) 0.3, Baso # (Auto) 0.0, Sodium 138, Potassium 4.3, Chloride 106, Carbon Dioxide 28, Anion Gap 8.3, BUN 10, Creatinine 0.60 L, Estimated Creat Clear 232, Estimated GFR 150, Est GFR ( Amer) 181, Glucose 92, Calcium 8.6, Phosphorus 3.2 Assessment and Plan *Assessment and plan (1) Abscess of umbilicus: Status: Acute Category: Medical Code(s): L02.216 - Cutaneous abscess of umbilicus Plan I reviewed the imaging. This does appear to be a deep intraumbilical abscess with some surrounding soft tissue infection. There does not appear to be definitively fascial defect or evidence of abscess urachal cyst on imaging. However, given the patient's tenderness and possibility that this could extend deeply I will plan for incision and drainage under anesthesia.
[2025-01-21] MEDS: BUPRENORPHINE/NALOXONE 8MG/2MG ODT 1.5 EACH SL (08:52)
--- NOTE | 2025-01-21 09:07 | P.PNANES_ITS ---
[facility] Disclaimer: The information contained in this section may have been updated after the patient was seen, as this information can be updated by other users. Surgical History H/O hernia repair Hx of appendectomy Social History Smoking Status: Never smoker alcohol intake: never substance use type: former substance user, heroin, opiates and methamphetamine current occupational status: employed Travel in the last 8 weeks: None household members: family housing: house Have you lived/traveled outside US in past 30 days?: No Contact w/someone who lives/traveled outside US past 30 days?: No Exposure to someone with infectious disease in past 14 days?: No Do you have a fever (greater than 100.4 F or 38 C)?: No Have you tested positive for COVID-19: No Exposed to someone with COVID-19 in past 14 days?: No Do you have a sore throat?: No Do you have a cough?: No Do you have any weakness?: No Are you experiencing any nausea/vomitting?: No Do you have any diarrhea?: No Are you experiencing any unusual bleeding?: No Do you have any muscle aches/pain?: No Do you have any abdominal pain?: No Are you experiencing loss of taste or smell?: No [facility] Anesthesia Checklist Patient Identification Patient Identification: Arm Band and Verbal (Name & ) Structural Data Admitted From: Home Planned Operative Procedure/s: Umbicial I&D Consent for Planned Operative Procedure(s) Verified: Yes Verified Documents: Surgical Consent and History and Physical NPO Status Verified Time NPO: 00:00 Additional verifications Anesthesia Reactions: No Airway Assessment Mallampati Score:: Class I C-Spine Mobility Assessed: Yes Dentition: Good Dentition Neurological Assessment Level of Consciousness: Awake, Alert and Appropriate Hx Seizures: No Anesthesia Plan Anesthesia Risk discussed: Yes Anesthesia Plan: Verified ASA Class: II Anesthesia Type: General
[2025-01-21] MEDS: CLINDAMYCIN PHOSPHATE/D5W 900 MG/50 ML PIGGYBACK 100 MG IV (09:11)
--- NOTE | 2025-01-21 09:39 | HMH.PHAINT1 ---
Pharmacy Intervention Comments: MEDICATION RECONCILIATION COMPLETED ON PATIENT USING EXTERNAL FILL HISTORY FROM PHARMACY AND MEIR REPORT. -EL COLLINS, RITAD
[2025-01-21] MEDS: LIDOCAINE 1% 20ML MDV 20 ML (10:01)
[2025-01-21] MEDS: ROPIVACAINE 0.5% 30ML VIAL 150 MG (10:01)
--- NOTE | 2025-01-21 10:16 | EXP.OP.NOTE ---
Date of procedure: 01/21/25 Pre-op Diagnosis:: Umbilical abscess Post-op Diagnosis:: Same Procedure performed:: Incision and drainage of umbilical abscess with debridement of skin and subcutaneous tissues Surgeon:: Radhames Yu MD Anesthesia: LMA Estimated blood loss (mL): 15 Clinical Note:: Patient is a 39-year-old male from [place] with remote history of IV drug abuse on Suboxone maintenance therapy. He presented to the emergency department on the evening of 01/20/2025 with a 2-month history of umbilical infection. He had been seen at outside urgent care facility and treated with an antifungal topically. Over the past 2 weeks the drainage had worsened and becoming thick, yellowish to greenish, and malodorous over the past 1 to 2 days with redness and streaking from his umbilical area down to his belt line. This prompted visit to the urgent treatment center on 01/20/2025 but prior to evaluation patient had left and presented to the emergency department at [facility]. Evaluation in the emergency department revealed unremarkable laboratory findings. [id number] ultrasound by the ER physician revealed what appeared to be relatively large umbilical abscess extending toward the peritoneal wall. Surgery was contacted for recommendations. Given the extent it was felt that the may need operative intervention. Given the fact that this is a relatively longstanding chronic problem with patient being stable with normal laboratory findings and no signs of sepsis plan was made for admission for intravenous antibiotics and potential surgical intervention. He had previously undergone laparoscopic appendectomy greater than 20 years ago. Operative findings:: This appeared to be consistent with essentially hidradenitis with ingrown hair and purulent granulation tissue focally at the umbilicus above the fascia. Operative note:: Consent was obtained patient was taken the operating room. He was positioned in supine position. General anesthesia was induced. Abdomen was prepped and draped in the standard surgical fashion. Exposure was achieved with some difficulty with retraction identifying some inflamed granulation tissue deep within the umbilicus. Attempt was made to probe this. There did not appear to be significant pocket. The inflamed skin and granulation tissue was grasped with an Allis clamp and elevated ultimately. Limited dissection was carried out excising this inflamed granulation tissue and skin with electrocautery. Repeated attempt was made to probe a deep abscess cavity and there appeared to be none definitively apparent. There was some hair debris within the wound and this was evacuated. This essentially had the appearance of pilonidal cyst with abscess. The inflamed somewhat purulent granulation tissue above the fascia was debrided with a curette. Repeated probing of the wound revealed no deep tracking below the fascia or inferiorly. Local anesthetic was infiltrated. Limited wound was packed with an iodoform gauze. Clean dry sterile dressing was applied. Plan will be to leave the iodoform in place for 48 hours with close outpatient follow-up and likely change at that time. Hopefully this allows this area to scar and. Any kind of dressing changes are going to be very limited and challenging. Condition: stable Disposition: PACU Complications:: None immediately apparent
[2025-01-21] MEDS: PIPERCILLIN/TAZO 3.375 GM in 0.9 % SODIUM CHLORIDE 50 ML IV (10:56)
[2025-01-21 11:01] LABS: Free T4 (Free Thyroxine) 0.93 ng/dl (0.78-2.19)
[2025-01-21 11:16] LABS: Thyroid Stimulating Hormone 0.51 uIU/mL (0.465-4.68)
--- NOTE | 2025-01-21 11:26 | EXP.DC.SUM ---
General Admission date:: 01/20/25 HPI HPI HPI: Patient is a 39-year-old male from [place] with remote history of IV drug abuse on Suboxone maintenance therapy. He presented to the emergency department on the evening of 01/20/2025 with a 2-month history of umbilical infection. He had been seen at outside urgent care facility and treated with an antifungal topically. Over the past 2 weeks the drainage had worsened and becoming thick, yellowish to greenish, and malodorous over the past 1 to 2 days with redness and streaking from his umbilical area down to his belt line. This prompted visit to the urgent treatment center on 01/20/2025 but prior to evaluation patient had left and presented to the emergency department at [facility]. Evaluation in the emergency department revealed unremarkable laboratory findings. [id number] ultrasound by the ER physician revealed what appeared to be relatively large umbilical abscess extending toward the peritoneal wall. Surgery was contacted for recommendations. Given the extent it was felt that the may need operative intervention. Given the fact that this is a relatively longstanding chronic problem with patient being stable with normal laboratory findings and no signs of sepsis plan was made for admission for intravenous antibiotics and potential surgical intervention. He had previously undergone laparoscopic appendectomy greater than 20 years ago. Hospital Course Hospital Course Hospital Course: Richy Flaherty is a 39-year-old male who presented with umbilical pain and drainage and was admitted for umbilical abscess. #Umbilical abscess ? General Surgery consulted, s/p I&D and debridement on 01/21/2025. Patient tolerated procedure well. Hemoglobin A1c normal, 5.3%. ? Spoke with surgery, they believe it might have been ingrown hair as etiology. ? Surgery will see patient on 01/23/2025. Will keep dressings in place until then. ? Treated with IV Zosyn, discharged with Bactrim for 6 more days. #Former opioid use disorder ? Continue Suboxone daily. Exam Data for Last 24 hours Vital signs and Labs for Last 24 Hours: Temp Pulse Resp BP Pulse Ox O2 Del Method 97.5 F L 65 18 132/72 99 Room Air 01/21/25 11:15 01/21/25 11:15 01/21/25 11:15 01/21/25 11:15 01/21/25 11:15 01/21/25 11:15 Laboratory Results - last 24 hr 01/20/25 16:47: WBC 4.9, RBC 4.63, Hgb 13.7 L, Hct 40.4 L, MCV 87.3, MCH 29.6, MCHC 33.9, RDW 12.6, Plt Count 279, MPV 9.2, Neut % (Auto) 57.8, Lymph % (Auto) 27.2, [place] % (Auto) 8.3, Eos % (Auto) 5.7, Baso % (Auto) 0.8, Neut # (Auto) 2.8, Lymph # (Auto) 1.3, [place] # (Auto) 0.4, Eos # (Auto) 0.3, Baso # (Auto) 0.0, Sodium 140, Potassium 4.1, Chloride 102, Carbon Dioxide 30, Anion Gap 12.1, BUN 11, Creatinine 0.70, Estimated Creat Clear 195, Estimated GFR 126, Est GFR ( Amer) 152, Glucose 96, Calcium 8.9, Total Bilirubin 0.4, AST 41, ALT 24, Alkaline Phosphatase 84, Total Protein 8.2, Albumin 4.8, Globulin 3.4 H, Albumin/Globulin Ratio 1.4, HCV Ab RIZWANA w/Rflx PCR Qn Negative, HIV Ag/Ab Combo Qual Negative 01/21/25 06:08: WBC 5.2, RBC 4.31 L, Hgb 12.6 L, Hct 38.0 L, MCV 88.2, MCH 29.2, MCHC 33.2, RDW 12.6, Plt Count 252, MPV 9.4, Neut % (Auto) 52.6, Lymph % (Auto) 31.9, [place] % (Auto) 8.1, Eos % (Auto) 6.4, Baso % (Auto) 0.8, Neut # (Auto) 2.7, Lymph # (Auto) 1.7, [place] # (Auto) 0.4, Eos # (Auto) 0.3, Baso # (Auto) 0.0, Sodium 138, Potassium 4.3, Chloride 106, Carbon Dioxide 28, Anion Gap 8.3, BUN 10, Creatinine 0.60 L, Estimated Creat Clear 232, Estimated GFR 150, Est GFR ( Amer) 181, Glucose 92, Calcium 8.6, Phosphorus 3.2 01/21/25 06:15: TSH 0.51, Free T4 0.93 I & O for Last 24 hours: Intake & Output 01/18/25 01/19/25 01/20/25 01/21/25 23:59 23:59 23:59 23:59 Intake Total 550 / 550 Output Total 0 / 0 0 / 0 Balance 0 / 550 550 / 550 Weight 97.522 kg 99.427 kg Constitutional Constitutional: no acute distress *Routine HEENT Exam Head: Present normocephalic Eye: Present EOMI and PERRL ENT: Present mucous membranes moist *Routine Neck Exam Neck: Present supple; Absent lymphadenopathy *Routine Respiratory Exam Respiratory: Present CTA bilaterally *Routine Cardiovascular Exam Cardiovascular: Present RRR *Routine Abdominal Exam Abdominal: Present soft and normoactive bowel sounds; Absent tenderness Comments: Dressings intact, mild tenderness to palpation over umbilicus. *Routine Extremities Exam Extremities: Absent cyanosis, clubbing or edema *Routine Skin Exam Skin: Present warm; Absent rash *Routine Neurological Exam Neurological: Present alert and oriented X3 Results Data Completed and Pending Labs on day of discharge: Labs from last 24 hours 01/21/25 01/21/25 01/20/25 06:15 06:08 16:47 WBC 5.2 4.9 RBC 4.31 L 4.63 Hgb 12.6 L 13.7 L Hct 38.0 L 40.4 L MCV 88.2 87.3 MCH 29.2 29.6 MCHC 33.2 33.9 RDW 12.6 12.6 Plt Count 252 279 MPV 9.4 9.2 Neut % (Auto) 52.6 57.8 Lymph % (Auto) 31.9 27.2 [place] % (Auto) 8.1 8.3 Eos % (Auto) 6.4 5.7 Baso % (Auto) 0.8 0.8 Neut # (Auto) 2.7 2.8 Lymph # (Auto) 1.7 1.3 [place] # (Auto) 0.4 0.4 Eos # (Auto) 0.3 0.3 Baso # (Auto) 0.0 0.0 Sodium 138 140 Potassium 4.3 4.1 Chloride 106 102 Carbon Dioxide 28 30 Anion Gap 8.3 12.1 BUN 10 11 Creatinine 0.60 L 0.70 Estimated Creat Clear 232 195 Estimated GFR 150 126 Est GFR ( Amer) 181 152 Glucose 92 96 Calcium 8.6 8.9 Phosphorus 3.2 Total Bilirubin 0.4 AST 41 ALT 24 Alkaline Phosphatase 84 Total Protein 8.2 Albumin 4.8 Globulin 3.4 H Albumin/Globulin Ratio 1.4 TSH 0.51 Free T4 0.93 HCV Ab RIZWANA w/Rflx PCR Qn Negative HIV Ag/Ab Combo Qual Negative DS: Diagnosis Discharge Diagnosis (1) Abscess of umbilicus: Status: Acute Code(s): L02.216 - Cutaneous abscess of umbilicus Meds Home Medications and Allergies Home Medications ?Medication ?Instructions ?Recorded ?Confirmed ?Type buprenorphine 8 mg-naloxone 2 mg 1.5 tab sublingual DAILY #14 tabs 02/17/19 01/20/25 History sublingual tablet sulfamethoxazole 800 1 tab PO BID 6 days #12 tabs 01/21/25 Rx mg-trimethoprim 160 mg tablet (Bactrim DS) New Prescriptions to Start Prescriptions: sulfamethoxazole-trimethoprim [Bactrim DS] Shemar Garcia Allergies Allergy/AdvReac Type Severity Reaction Status Date / Time No Known Allergies Allergy Verified 01/20/25 15:54 Discharge Plan Disposition Patient Disposition: Home, Self-Care Condition: Good Follow up Plan Follow up with: Radhames Yu MD [Staff Physician] - 01/23/25 (please call for appointment) Prescriptions/Medication Reconciliation: New sulfamethoxazole-trimethoprim [Bactrim DS] 800-160 mg tablet 1 tab PO BID 6 Days Qty: 12 0RF Continued buprenorphine-naloxone 8-2 mg tablet, sublingual 1.5 tab SUBLINGUAL DAILY Qty: 14 Problem Reconciliation Problems Reviewed?: Yes Patient Discharge Instructions Additional Instructions: Please not change your dressing until you see Dr. Yu on Thursday. Keep area dry. Stand Alone Forms: [facility] Work Release Patient Instructions: DI for Incision and Drainage of a Skin Abscess, DI for Surgical Site Infection Print Language: Turkish Providers Primary Care Provider: Provider,Referral Admit Provider: Shemar Garcia Attending Provider: Shemar Garcia
[2025-01-21 11:55] LABS: Hemoglobin A1C 5.3 % (4.0-6.0)
--- NOTE | 2025-01-23 14:48 | EXP.ANES.II ---
[facility] Anesthesia Record Part II Anesthesia Record Part II Discharge Time: 10:42 Destination: Medical Surgical Department PACU nurse assessment reviewed?: Yes Patient Condition:: Good Anesthesia Complications:: None Swallowing reflex intact?: Yes Airway Patency: Patent Cyanosis?: No Blood Pressure: 133/74 SaO2: 99 Respiratory Rate: 17 Pulse Rate: 57 Temperature: 97.4 F Mental Status: Alert & Oriented Pain level:: 0 Nausea and/or vomitting:: None Intake, IV Amount: 0 Hydration: Adequate
[2025-01-23 14:49] VITALS: BP 133/74; PULSE 57; RESP 17; TEMP 36.3; O2SAT 99
--- NOTE | 2025-01-24 10:19 | SW/DCPLANNER ---
Phoned patient x2. Left messages with call back number and name. Benito Lomax
== END 2025-01-21 12:55 | disposition home or self-care (01) ==
LOC: ER 18:55 → 2ND 19:59
PROVIDERS: Nurse Practitioner Family; Surgery; Admitting Provider Student in an Organized Health Care Education/Training Program; Emergency Provider Emergency Medicine; Visit Provider Student in an Organized Health Care Education/Training Program
PROC: (CPT 10080; principal; 2025-01-21 09:00)
DX: L02.216 Cutaneous abscess of umbilicus (principal); Z79.891 Long term (current) use of opiate analgesic; D64.9 Anemia, unspecified; L03.316 Cellulitis of umbilicus; B95.1 Streptococcus, group B, as the cause of diseases classified elsewhere; L73.1 Pseudofolliculitis barbae; L05.01 Pilonidal cyst with abscess
CPT/HCPCS: 10080; 74177; 80048; 80053; 83036; 84100; 84439; 84443; 85025; 86803; 87040; 87070; 87186; 87205; 87389; 99285; G0378; J0574; J0736; J1100; J2250; J2405; J2543; J3010; J3372; J7120; Q9967